=== PATIENT | female | born 1935 | race Asian ===

== ENCOUNTER 2023-07-25 20:30 | Inpatient (IN) | payer OTHER, MEDICAID ==
[~2023-07-25] VITALS: Ht 160 cm; Wt 59.0 kg
[2023-07-25] MEDS: DOXYCYCLINE 100 MG in DEXTROSE 5% 100 ML IV ONE (02:40)
[2023-07-25 20:58] VITALS: BP 138/88; PULSE 82; RESP 18; TEMP 97.7; O2SAT 96
[2023-07-25] MEDS ORDERED: cefTRIAXone 1,000 MG VIAL ONE (21:54)
[2023-07-25 22:04] LABS: BASOPHILS # (AUTO) 0.1 K/uL (0.00-0.22); BASOPHILS % (AUTO) 0.7 % (0.0-2.0); EOSINOPHILS # (AUTO) 0.1 K/uL (0-0.4); EOSINOPHILS % (AUTO) 1.7 % (0.0-4.0); HEMOGLOBIN 10.4 g/dL (12.0-16.0); LYMPHOCYTES # (AUTO) 1.4 K/uL (2.5-16.5); LYMPHOCYTES % (AUTO) 18.4 % (20.5-51.1); MEAN CORPUSCULAR HEMOGLOBIN 35 pg (27-31); MEAN CORPUSCULAR HGB CONC 35 g/dL (33-37); MONOCYTES # (AUTO) 0.5 K/uL (0.8-1.0); MONOCYTES % (AUTO) 6.1 % (1.7-9.3); NEUTROPHILS # (AUTO) 5.6 K/uL (1.8-7.7); NEUTROPHILS % (AUTO) 73.1 % (42.2-75.2); PLATELET COUNT (AUTO) 269 K/uL (140-450); RED CELL DISTRIBUTION WIDTH 14.7 % (11.6-13.7); WHITE BLOOD COUNT (AUTO) 7.6 K/uL (4.8-10.8)
[2023-07-25] MEDS: cefTRIAXone 1,000 MG in DEXT 5% MINI-BAG PLUS 50 ML IV ONE (22:05)
[2023-07-25 22:20] LABS: ANION GAP 7.9 (8-16); CALCIUM 8.3 mg/dL (8.5-10.1); CARBON DIOXIDE 34.1 mmol/L (21-32); CHLORIDE 91 mmol/L (98-107); CREATININE 2.6 mg/dL (0.6-1.3); GLUCOSE 165 mg/dL (74-106); SODIUM SERUM 129 mmol/L (136-145); UREA NITROGEN, BLOOD 40 mg/dL (7-18)
[2023-07-25 22:42] LABS: APPEARANCE,URINE CLOUDY (CLEAR); BILIRUBIN,URINE NEGATIVE (NEGATIVE); BLOOD, URINE 3+ (NEGATIVE); COLOR,URINE YELLOW (YELLOW); LEUKOCYTE ESTERASE ,URINE 3+ (NEGATIVE); NITRITE, URINE NEGATIVE (NEGATIVE); PROTEIN,URINE 3+ (NEGATIVE); UGLUCOSE TRACE (NEGATIVE); UROBILINOGEN,URINE 0.2 EU/dL (0.2 - 1)
[2023-07-25 22:49] LABS: FLU A ANTIGEN negative (NEGATIVE); FLU B ANTIGEN NEGATIVE (NEGATIVE); RSV NEGATIVE (NEGATIVE)
[2023-07-25 23:01] LABS: BACTERIA,URINE 10-30 (MOD) /HPF (None Seen); WBC,URINE TOO MANY TO COUNT /HPF (0-5)
[2023-07-25 23:02] LABS: MUCUS,URINE 1+ /LPF (None Seen); SQUAMOUS EPITHELIAL CELL,UR 0-3 (FEW) /LPF (0-3 (FEW))
[2023-07-26] VITALS (10 sets, daily range): BP systolic 137–157; BP diastolic 59–81; PULSE 88–105; RESP 12–24; TEMP 97.2–98.3; O2SAT 94–99
[2023-07-26 00:33] LABS: LACTIC ACID 1.5 mmol/L (0.4-2.0)
[2023-07-26] MEDS ORDERED: cefTRIAXone 1,000 MG VIAL ONE (00:37)
[2023-07-26] MEDS ORDERED: ACETAMINOPHEN 325 MG TAB PO PRN (01:15)
[2023-07-26] MEDS ORDERED: HYDROcodone/APAP 5/325 MG 1 TAB TAB PO PRN (01:15)
[2023-07-26] MEDS ORDERED: DEXTROSE 50% 50 ML SYR IVP PRN (01:15)
[2023-07-26] MEDS ORDERED: ONDANSETRON 4 MG/2 ML VIAL IVP PRN (01:15)
[2023-07-26] MEDS ORDERED: DOXYCYCLINE 100 MG VIAL IV ONE (02:41)
[2023-07-26] MEDS ORDERED: AMLO5TAB PO (03:20)
[2023-07-26] MEDS ORDERED: ATOR40TA PO (03:21)
[2023-07-26] MEDS ORDERED: SEVE0.8P PO (03:21)
[2023-07-26] MEDS: hydrALAZINE 20 MG/ML VIAL IVP PRN (03:25)
[2023-07-26] MEDS: INSULIN LISPRO SLIDING SCALE 100 UNITS/ML VIAL SUBQ PRN (06:35)
[2023-07-26] MEDS: BLOOD GLUCOSE MONITORING 1 DEV DEV FS SCH (06:52)
[2023-07-26 11:45] LABS: ANION GAP 10.1 (8-16); CALCIUM 8.5 mg/dL (8.5-10.1); CHLORIDE 91 mmol/L (98-107); CREATININE 2.8 mg/dL (0.6-1.3); GLUCOSE 176 mg/dL (74-106); POTASSIUM 4.1 mmol/L (3.5-5.1); SODIUM SERUM 129 mmol/L (136-145); UREA NITROGEN, BLOOD 43 mg/dL (7-18)
[2023-07-26] MEDS: ALBUTEROL SULFATE/IPRATROPIU 3 ML SOL IH PRN (14:30)
[2023-07-27] VITALS (9 sets, daily range): BP systolic 126–187; BP diastolic 45–79; PULSE 71–105; RESP 18–19; TEMP 97.5–98.2; O2SAT 93–98
[2023-07-27 06:54] LABS: BASOPHILS # (AUTO) 0.1 K/uL (0.00-0.22); BASOPHILS % (AUTO) 1.2 % (0.0-2.0); EOSINOPHILS # (AUTO) 0.1 K/uL (0-0.4); EOSINOPHILS % (AUTO) 1.4 % (0.0-4.0); HEMATOCRIT 31.2 % (36-48); HEMOGLOBIN 10.7 g/dL (12.0-16.0); LYMPHOCYTES # (AUTO) 1.4 K/uL (2.5-16.5); LYMPHOCYTES % (AUTO) 23.9 % (20.5-51.1); MEAN CORPUSCULAR HEMOGLOBIN 34 pg (27-31); MEAN CORPUSCULAR HGB CONC 34 g/dL (33-37); MEAN CORPUSCULAR VOLUME 99.1 fL (80-94); MONOCYTES # (AUTO) 0.4 K/uL (0.8-1.0); MONOCYTES % (AUTO) 6.2 % (1.7-9.3); NEUTROPHILS % (AUTO) 67.3 % (42.2-75.2); PLATELET COUNT (AUTO) 294 K/uL (140-450); RED BLOOD CELL COUNT(AUTO) 3.15 MIL/uL (4.20-5.40); RED CELL DISTRIBUTION WIDTH 15.1 % (11.6-13.7); WHITE BLOOD COUNT (AUTO) 5.9 K/uL (4.8-10.8)
[2023-07-27 07:08] LABS: ANION GAP 10.5 (8-16); CALCIUM 8.5 mg/dL (8.5-10.1); CARBON DIOXIDE 31.4 mmol/L (21-32); CHLORIDE 98 mmol/L (98-107); GLUCOSE 114 mg/dL (74-106); POTASSIUM 3.9 mmol/L (3.5-5.1); SODIUM SERUM 136 mmol/L (136-145); UREA NITROGEN, BLOOD 25 mg/dL (7-18)
[2023-07-27] MEDS: hydrALAZINE 20 MG/ML VIAL IVP PRN (12:12)
[2023-07-27 12:36] LABS: INR 1.19 (0.8-1.2); PARTIAL THROMBOPLASTIN TIME 30.1 secs (22-35.6); PROTHROMBIN TIME 12.4 secs (10.8-13.4)
[2023-07-27] MEDS: THERAHONEY GEL 42.5 GM TP SCH (14:36)
[2023-07-28] VITALS (10 sets, daily range): BP systolic 124–188; BP diastolic 43–86; PULSE 81–102; RESP 15–19; TEMP 96.6–97.7; O2SAT 94–100
[2023-07-28] MEDS: FOAM DRESSING TP SCH (01:36)
[2023-07-28] MEDS ORDERED: PHARMACY TO DOSE MC PRN (10:35)
[2023-07-28] MEDS: MEROPENEM 500 MG in NACL 0.9% 50 ML IV SCH (12:23)
[2023-07-28 15:32] LABS: BASOPHILS % (AUTO) 0.5 % (0.0-2.0); EOSINOPHILS # (AUTO) 0.1 K/uL (0-0.4); EOSINOPHILS % (AUTO) 2.2 % (0.0-4.0); HEMATOCRIT 31.9 % (36-48); HEMOGLOBIN 10.9 g/dL (12.0-16.0); LYMPHOCYTES # (AUTO) 1.3 K/uL (2.5-16.5); LYMPHOCYTES % (AUTO) 22.5 % (20.5-51.1); MEAN CORPUSCULAR HEMOGLOBIN 34 pg (27-31); MEAN CORPUSCULAR HGB CONC 34 g/dL (33-37); MONOCYTES # (AUTO) 0.4 K/uL (0.8-1.0); MONOCYTES % (AUTO) 7.5 % (1.7-9.3); NEUTROPHILS # (AUTO) 3.8 K/uL (1.8-7.7); NEUTROPHILS % (AUTO) 67.3 % (42.2-75.2); PLATELET COUNT (AUTO) 240 K/uL (140-450); RED BLOOD CELL COUNT(AUTO) 3.19 MIL/uL (4.20-5.40); RED CELL DISTRIBUTION WIDTH 15.2 % (11.6-13.7); WHITE BLOOD COUNT (AUTO) 5.7 K/uL (4.8-10.8)
[2023-07-28 16:56] LABS: ALANINE AMINOTRANSFERASE 16 U/L (12-78); ALBUMIN 2.1 g/dL (3.4-5.0); ALKALINE PHOSPHATASE 74 U/L (50-136); ANION GAP 11.7 (8-16); ASPARTATE AMINOTRANSFERASE 22 U/L (15-37); CALCIUM 8.3 mg/dL (8.5-10.1); CARBON DIOXIDE 29.2 mmol/L (21-32); CHLORIDE 102 mmol/L (98-107); CREATININE 1.7 mg/dL (0.6-1.3); GLUCOSE 112 mg/dL (74-106); POTASSIUM 3.9 mmol/L (3.5-5.1); SODIUM SERUM 139 mmol/L (136-145); TOTAL BILIRUBIN 0.3 mg/dL (0.0-1.0); TOTAL PROTEIN, SERUM 8.4 g/dL (6.4-8.2); UREA NITROGEN, BLOOD 15 mg/dL (7-18)
[2023-07-28] MEDS ORDERED: THERAHONEY GEL 42.5 GM TP PRN (17:20)
[2023-07-28 20:24] LABS: APPEARANCE,SPUN,BODY FLUID CLEAR (CLEAR); APPEARANCE,UNSPUN,BODY FLUID CLEAR (CLEAR); COLOR,BODY FLUID YELLOW (LT YELLOW); SPECIMENTYPE,BODY FLUID THORACENTESIS; TOTAL VOLUME,BODY FLUID 1500 mL; WBC, BODY FLUID 4 /cu. mm.
[2023-07-28 20:25] LABS: RBC, BODY FLUID 13 /cu. mm.
[2023-07-28 20:41] LABS: GLUCOSE,BODY FLUID 124 mg/dL; PROTEIN, BODY FLUID 3.3 g/dL
[2023-07-29] VITALS: BP 154/60; PULSE 96; PULSE 97; RESP 22; TEMP 97.2; O2SAT 97
[2023-07-29 04:00] VITALS: BP 159/59; PULSE 95; PULSE 96; TEMP 97.6; O2SAT 91
[2023-07-29 08:00] VITALS: BP 177/72; PULSE 94; PULSE 96; RESP 18; RESP 22; TEMP 97.6; TEMP 97.8; O2SAT 91; O2SAT 95
[2023-07-29 08:07] LABS: ALANINE AMINOTRANSFERASE 22 U/L (12-78); ALBUMIN 2.2 g/dL (3.4-5.0); ALKALINE PHOSPHATASE 77 U/L (50-136); ANION GAP 17.7 (8-16); ASPARTATE AMINOTRANSFERASE 39 U/L (15-37); CALCIUM 8.5 mg/dL (8.5-10.1); CARBON DIOXIDE 25.6 mmol/L (21-32); CHLORIDE 100 mmol/L (98-107); CREATININE 2.1 mg/dL (0.6-1.3); GLUCOSE 113 mg/dL (74-106); PHOSPHORUS 3.8 mg/dL (2.5-4.9); POTASSIUM 4.3 mmol/L (3.5-5.1); SODIUM SERUM 139 mmol/L (136-145); TOTAL BILIRUBIN 0.3 mg/dL (0.0-1.0); TOTAL PROTEIN, SERUM 8.3 g/dL (6.4-8.2); UREA NITROGEN, BLOOD 23 mg/dL (7-18)
[2023-07-29 08:15] LABS: BASOPHILS # (AUTO) 0.1 K/uL (0.00-0.22); EOSINOPHILS # (AUTO) 0.1 K/uL (0-0.4); HEMATOCRIT 32.1 % (36-48); HEMOGLOBIN 10.7 g/dL (12.0-16.0); LYMPHOCYTES # (AUTO) 1.5 K/uL (2.5-16.5); LYMPHOCYTES % (AUTO) 21.1 % (20.5-51.1); MEAN CORPUSCULAR HEMOGLOBIN 34 pg (27-31); MEAN CORPUSCULAR HGB CONC 33 g/dL (33-37); MEAN CORPUSCULAR VOLUME 101.2 fL (80-94); MONOCYTES # (AUTO) 0.5 K/uL (0.8-1.0); MONOCYTES % (AUTO) 6.6 % (1.7-9.3); NEUTROPHILS % (AUTO) 70.3 % (42.2-75.2); PLATELET COUNT (AUTO) 249 K/uL (140-450); RED BLOOD CELL COUNT(AUTO) 3.17 MIL/uL (4.20-5.40); RED CELL DISTRIBUTION WIDTH 15.3 % (11.6-13.7); WHITE BLOOD COUNT (AUTO) 7.2 K/uL (4.8-10.8)
[2023-07-29 12:00] VITALS: BP 144/68; PULSE 94; PULSE 97; RESP 18; TEMP 98.1; O2SAT 96
[2023-07-29] MEDS: THERAHONEY GEL 42.5 GM TP SCH (13:03)
[2023-07-29] MEDS ORDERED: MERO500V16 IV (13:22)
[2023-07-29 14:42] VITALS: BP 144/68; PULSE 97; RESP 18; TEMP 98.1
[2023-07-29] MEDS ORDERED: SEVELAMER CARBONATE PO SCH (17:00)
[2023-07-29] MEDS ORDERED: ATORVASTATIN 20 MG TAB PO SCH (21:00)
[2023-07-30] MEDS ORDERED: amLODIPine 5 MG TAB PO SCH (09:00)
== END 2023-07-29 16:47 | DRG 871 ==
LOC: MED 20:30 → MTU 07-26 01:25
PROVIDERS: ADMIT Student in an Organized Health Care Education/Training Program; ATTEND Student in an Organized Health Care Education/Training Program
PROC: 5A1D70Z Performance of Urinary Filtration, Intermittent, Less than 6 Hours Per Day (ICD-10-PCS; principal; 2023-07-26)
PROC: 5A1D70Z Performance of Urinary Filtration, Intermittent, Less than 6 Hours Per Day (ICD-10-PCS; 2023-07-28)
PROC: 0W993ZZ Drainage of Right Pleural Cavity, Percutaneous Approach (ICD-10-PCS; 2023-07-28)
DX: A41.9 Sepsis, unspecified organism (principal); J96.01 Acute respiratory failure with hypoxia; L89.154 Pressure ulcer of sacral region, stage 4; N18.6 End stage renal disease; N39.0 Urinary tract infection, site not specified; I12.0 Hypertensive chronic kidney disease with stage 5 chronic kidney disease or end stage renal disease; J81.1 Chronic pulmonary edema; E87.70 Fluid overload, unspecified; B96.20 Unspecified Escherichia coli [E. coli] as the cause of diseases classified elsewhere; E78.5 Hyperlipidemia, unspecified; D64.9 Anemia, unspecified; Z20.822 Contact with and (suspected) exposure to COVID-19; F03.90 Unspecified dementia, unspecified severity, without behavioral disturbance, psychotic disturbance, mood disturbance, and anxiety; E11.22 Type 2 diabetes mellitus with diabetic chronic kidney disease; Z99.2 Dependence on renal dialysis
CPT/HCPCS: 36415; 70450; 71045; 71250; 76604; 76942; 80048; 80053; 81001; 82945; 82948; 83605; 83735; 83880; 84100; 84157; 84484; 85025; 85610; 85730; 87040; 87070; 87075; 87081; 87086; 87205; 87420; 89051; 90935; 93005; 94640; 96361; 96365; 96366; 99285; J0360; J0696; J1644; J1815; J2001; J2185; J3490; J7060; Q0092